=== PATIENT | female | born 1995 | race Caucasian/White ===

== ENCOUNTER 2022-05-11 02:03 | Emergency (ER) | payer BC, OTHER ==
[~2022-05-11] VITALS: Ht 172.7 cm; Wt 90.9 kg
[2022-05-11 02:10] VITALS: BP 145/93
[2022-05-11] MEDS ORDERED: azithromycin 250mg tablet PO ONE (03:10)
[2022-05-11] MEDS ORDERED: HYDROcodone & chlorphen. 10-8mg/5ml oral susp. PO PRN (03:10)
[2022-05-11] MEDS ORDERED: GUAI-692 PO (03:13)
[2022-05-11] MEDS ORDERED: AZIT500T PO (03:13)
[2022-05-11] MEDS ORDERED: guaiFENesin/codeine phos 10ml UD oral syrup PO STA (03:15)
== END 2022-05-11 03:40 | disposition home or self-care (01) ==
LOC: ER 02:05
DX: J06.9 Acute upper respiratory infection, unspecified (principal); Z79.1 Long term (current) use of non-steroidal anti-inflammatories (NSAID); Z79.899 Other long term (current) drug therapy
CPT/HCPCS: 71046; 93005; 99283